=== PATIENT | female | born 1990 | race Caucasian/White ===

== ENCOUNTER 2019-08-14 14:01 | Emergency (ER) | payer MEDICAID ==
[~2019-08-14] VITALS: Ht 162.6 cm; Wt 82.6 kg
[2019-08-14 14:14] VITALS: Ht 162.6 cm; Wt 82.6 kg
[2019-08-14 15:05] LABS: microscopic required? YES; urine erythrocyte 3+ (NEGATIVE)
[2019-08-14 15:10] LABS: BASOPHIL % 0.3 % (0-2); PLATELET COUNT 245 x10^3mcL (130-400); RED CELL DISTRIBUTION WIDTH 13.9 % (11.5-14.5)
[2019-08-14 16:51] VITALS: BP 125/74
== END 2019-08-14 16:52 | disposition home or self-care (01) ==
LOC: ED 14:01
PROVIDERS: Emergency Medicine
DX: O20.0 Threatened abortion (principal); O44.01 Complete placenta previa NOS or without hemorrhage, first trimester; Z3A.01 Less than 8 weeks gestation of pregnancy; Z98.890 Other specified postprocedural states
CPT/HCPCS: 36415; J7030

== ENCOUNTER 2019-08-21 08:30 | Emergency (ER) | payer MEDICAID ==
[~2019-08-21] VITALS: Ht 165.1 cm; Wt 84.4 kg
[2019-08-21 08:37] VITALS: BP 118/71; Ht 165.1 cm; Wt 84.4 kg
[2019-08-21 09:02] LABS: BASOPHIL % 0.5 % (0-2); PLATELET COUNT 235 x10^3mcL (130-400); RED CELL DISTRIBUTION WIDTH 13.9 % (11.5-14.5)
[2019-08-21 09:09] LABS: microscopic required? YES; urine erythrocyte 3+ (NEGATIVE)
== END 2019-08-21 12:13 | disposition home or self-care (01) ==
LOC: ED 08:30
PROVIDERS: Emergency Medicine
DX: O46.91 Antepartum hemorrhage, unspecified, first trimester (principal); Z3A.01 Less than 8 weeks gestation of pregnancy
CPT/HCPCS: 36415